=== PATIENT | male | born 1955 | race Caucasian/White ===

== ENCOUNTER → 2018-09-30 | Outpatient (CLI) | payer MEDICARE, OTHER ==
[~2018-09-30] MED LIST: CATHETER FLUSH 10 ML SYR IV PRN
[2018-09-30 10:14] LABS: BASOPHILS % (AUTO) 0 % (0-10); EOSINOPHILS # (AUTO) 0.1 10^3/uL (0.0-0.3); EOSINOPHILS % (AUTO) 1 % (0-10); HEMATOCRIT 43 % (40-54); LYMPHOCYTES # (AUTO) 0.9 X 10^3 (1.0-4.0); LYMPHOCYTES % (AUTO) 18 % (12-44); MEAN CORPUSCULAR HEMOGLOBIN 31 PG (25-34); MEAN CORPUSCULAR HGB CONC 35 G/DL (32-36); MEAN CORPUSCULAR VOLUME 89 FL (80-99); MONOCYTES # (AUTO) 0.8 X 10^3 (0.0-1.0); MONOCYTES % (AUTO) 17 % (0-12); NEUTROPHILS # (AUTO) 2.9 X 10^3 (1.8-7.8); NEUTROPHILS % (AUTO) 63 % (42-75); PLATELET COUNT 218 10^3/uL (130-400); RED BLOOD COUNT 4.88 10^6/uL (4.35-5.85); RED CELL DISTRIBUTION WIDTH 13.3 % (10.0-14.5); WHITE BLOOD COUNT 4.6 10^3/uL (4.3-11.0)
[2018-09-30 10:30] LABS: URIC ACID 7.1 MG/DL (2.6-7.2)
[2018-09-30 10:37] LABS: ERYTHROCYTE SEDIMENTATION RATE 13 MM/HR (0-30)
--- NOTE | 2018-09-30 13:30 | Diagnostic Imaging Report ---
INDICATION: Left knee pain. Patient has a left knee prosthesis. Patient also has history of prostate carcinoma. TECHNIQUE: Patient was administered 23.2 mCi technetium 99m MDP intravenously and dynamic flow, blood pool and delayed imaging over both knees was performed. In addition, whole imaging was performed after a three-hour delay. COMPARISON: No prior bone scan is available for comparison. FINDINGS: There is symmetric blood flow and blood pool activity within both knees. Photopenia over the left knee is seen consistent with patient's known left knee prosthesis. Delayed imaging over the knees demonstrate some uptake involving the medial compartment of the right knee, likely degenerative. No abnormal activity about the left knee or prosthesis is identified to suggest loosening or infection. Whole-body imaging demonstrates normal uptake of activity by the axial and appendicular skeleton. There is uptake by both kidneys with excretion into the urinary bladder. No abnormal foci of tracer accumulation is seen to suggest osseous metastatic disease. IMPRESSION: 1. No scintigraphic evidence of osseous metastatic disease. 2. No abnormality is seen about the left knee and prosthesis to suggest infection or loosening. There are some degenerative changes of the right knee. Dictated by: Dictated on workstation # [id number]
== END ==
LOC: CARD 09:28
PROVIDERS: ATTEND Nurse Practitioner Family
DX: M25.562 Pain in left knee (principal); M79.89 Other specified soft tissue disorders; Z96.652 Presence of left artificial knee joint; M17.11 Unilateral primary osteoarthritis, right knee; Z80.42 Family history of malignant neoplasm of prostate
CPT/HCPCS: 36415; 78306; 84550; 85025; 85652; 86038; 86141; 86200; 86430

== ENCOUNTER → 2021-02-18 | Outpatient (CLI) | payer MEDICARE, OTHER ==
--- NOTE | 2021-02-18 16:01 | Diagnostic Imaging Report ---
PROCEDURE: MRI left joint lower extremity without contrast. TECHNIQUE: Multiplanar, multisequence non contrast-enhanced MRI of the left ankle was accomplished. INDICATION: Ankle pain. COMPARISONS: None available. FINDINGS: TENDONS: Achilles is intact. Peroneus longus and brevis tendons are intact. The posterior tibialis, flexor digitorum longus and flexor hallucis longus are normal. Anterior tibialis, extensor hallucis longus, and extensor digitorum longus are normal. LIGAMENTS: Anterior and posterior distal tibiofibular ligaments are intact. The anterior talofibular, calcaneofibular, and posterior talofibular ligaments are intact. Medial deltoid ligamentous complex is normal. Spring ligament is intact. BONES AND CARTILAGE: No osteochondral lesion of the talar dome. No fracture or stress fracture. The articular cartilage of the tibiotalar and posterior subtalar joints are normal. No tarsal coalition. No abnormal osseous excrescence from the talus. There is a prominent Stieda process of the talus but has no surrounding edema. SOFT TISSUES: No evidence of plantar fasciitis. No abnormal soft tissue scar/fibrosis within the tarsal canal/sinus tarsi or tarsal tunnel. No ankle joint effusion. IMPRESSION: 1. No tarsal coalition. No osseous excrescence from the talus to suggest osteochondroma. 2. No tendon or ligament tear. Dictated by: Dictated on workstation # [id number]
== END ==
LOC: RAD 14:00
PROVIDERS: ATTEND Podiatrist Foot & Ankle Surgery
DX: M77.9 Enthesopathy, unspecified (principal); M89.8X7 Other specified disorders of bone, ankle and foot
CPT/HCPCS: 73721

== ENCOUNTER 2021-05-01 05:32 | Outpatient (RCR) | payer MEDICARE, OTHER ==
[~2021-05-01] VITALS: Ht 175.3 cm; Wt 113.5 kg
[~2021-05-01 05:32] MED LIST changes: +AMLO-251 PO; +ATOR40TA70 PO; +CALC-823 PO; +CALC625T29 PO; +CARV25TA PO; -CATHETER FLUSH 10 ML SYR IV PRN; +CHOL400C9 PO; +DULA1.5P2 SQ; +HYDR12.56 PO; +LISI20TA26 PO; +MELO15TA39 PO
== END 2021-05-01 10:35 | disposition home or self-care (01) ==
LOC: PREOP 05:32
PROVIDERS: ATTEND Podiatrist Foot & Ankle Surgery
DX: Z01.812 Encounter for preprocedural laboratory examination (principal); M89.8X7 Other specified disorders of bone, ankle and foot; Z20.822 Contact with and (suspected) exposure to COVID-19
CPT/HCPCS: 87635

== ENCOUNTER 2021-05-05 05:54 | Day surgery (SDC) | payer MEDICARE, OTHER ==
[2021-05-05] VITALS (10 sets, daily range): BP systolic 120–153; BP diastolic 65–72
[~2021-05-05] VITALS: Ht 175.3 cm; Wt 113.5 kg
[2021-05-05] MEDS ORDERED: ONDANSETRON 4 MG/2 ML (SDV) Z0FRAN ONE (06:47)
[2021-05-05] MEDS ORDERED: SEVOFLURANE (ULTANE) 15 ML INHAL SOLN ONE (06:47)
[2021-05-05] MEDS ORDERED: SUCCINYLCHOLINE INJ 100 MG/5 ML SYR/VIAL ONE (06:47)
[2021-05-05] MEDS ORDERED: proPOfol 200 MG/20 ML (DIPRIVAN) VIAL IV ONE (06:47)
[2021-05-05] MEDS ORDERED: ROCURONIUM 10 MG/ML 5 ML SYRINGE IV ONE (06:47)
[2021-05-05] MEDS ORDERED: fentaNYL INJ 100 MCG/2 ML AMP ONE (06:47)
[2021-05-05] MEDS ORDERED: MIDAZOLAM 2 MG/2 ML (VERSED) VIAL ONE (06:48)
[2021-05-05] MEDS ORDERED: ceFAZolin INJECTION 1,000 MG in WATER (STERILE) FOR INJECTION 10 ML IV ONE (07:00)
[2021-05-05] MEDS ORDERED: LACTATED RINGERS 1,000 ML IV PRN (07:00)
[2021-05-05] MEDS ORDERED: FAMOTIDINE 20MG/2ML IV (PEPCID) ONE (07:09)
[2021-05-05] MEDS ORDERED: BUPIVACAINE 0.5% 30 ML (SENSORCAINE) VIAL ONE (07:13)
[2021-05-05] MEDS ORDERED: LIDOCAINE 1% INJ 20 ML 20 ML VIAL ONE (07:13)
--- NOTE | 2021-05-05 07:52 | Progress Note-Pre Operative ---
Pre-Operative Progress Note H&P Reviewed The H&P was reviewed, patient examined and no changes noted. Date Seen by Provider: May 05, 2021 Time Seen by Provider: 07:52 Date H&P Reviewed: May 05, 2021 Time H&P Reviewed: 07:52 Pre-Operative Diagnosis: Bone spur (exostosis) left talus JUDITH LANDIS DPM May 05, 2021 07:52
[2021-05-05] MEDS ORDERED: PHENYLEPHRINE 100 MCG/ML 10 ML (ANESTHESIA) SYR ONE (08:06)
[2021-05-05] MEDS ORDERED: GLYCOPYRROLATE 0.2 MG/ML (ROBINUL) 2 ML VIAL ONE (08:35)
[2021-05-05] MEDS ORDERED: NEOSTIGMINE 3 MG/3 ML VIAL ONE (08:35)
--- NOTE | 2021-05-05 09:05 | Progress Note-Post Operative ---
Post-Operative Progess Note Surgeon (s)/Guide Dog Trainer (s) Surgeon JUDITH LANDIS DPM Guide Dog Trainer: none Pre-Operative Diagnosis Bone spur (exostosis) left talus Post-Operative Diagnosis same Procedure & Operative Findings Date of Procedure 05/05/21 Procedure Performed/Findings Exostectomy, left talus Anesthesia Type General Estimated Blood Loss Estimated blood loss (mL): Minimal Specimens/Packing Specimens Removed Bone spur left talus Packing: none JUDITH LANDIS DPM May 05, 2021 09:05
[2021-05-05] MEDS ORDERED: ACHD5005 PO (09:08)
--- NOTE | 2021-05-05 09:14 | Diagnostic Imaging Report ---
INDICATION: Left foot pain IMPRESSION: 1.2 seconds of fluoroscopy and single lateral digital image surgery is used by Dr. Michelle during bone spur excision from left foot. Dictated by: Dictated on workstation # [id number]
[2021-05-05] MEDS ORDERED: HYDROmorphone 2 MG/ML VIAL (DILAUDID) IV ONE (09:15)
[2021-05-05] MEDS ORDERED: HYDROcodone/APAP 5 MG/325 MG (LORTAB) TAB PO PRN (09:15)
[2021-05-05] MEDS ORDERED: LACTATED RINGERS 1,000 ML IV SCH (09:15)
[2021-05-05] MEDS ORDERED: ONDANSETRON 4 MG/2 ML (SDV) Z0FRAN IVP PRN (09:15)
--- NOTE | 2021-05-05 09:48 | Diagnostic Imaging Report ---
INDICATION: Left foot pain AP and lateral views of left foot show no fracture, dislocation or other acute abnormalities. IMPRESSION: Unremarkable left foot. Dictated by: Dictated on workstation # [id number]
--- NOTE | 2021-05-05 10:39 | Anesthesia-General Post-Op ---
General Patient Condition Mental Status/LOC: Same as Preop Cardiovascular: Satisfactory Nausea/Vomiting: Absent Respiratory: Satisfactory Pain: Controlled Complications: Absent Post Op Complications Complications None Follow Up Care/Instructions Patient Instructions None needed. Anesthesia/Patient Condition Patient Condition Patient is doing well, no complaints, stable vital signs, no apparent adverse anesthesia problems. No complications reported per nursing. D/C home per [facility] [place] Criteria: Yes AURELIO JACQUES CRNA May 05, 2021 10:39
--- NOTE | 2021-05-05 11:38 | Physical Therapy Ortho Eval ---
PT Orthopedic Evaluation Type of Surgery Bone spur (exostosis) left talus Prior Level of Function Current Living Status: Spouse Locomotion (Upon Admit): Independent Established Durable Medical Eq: Front Wheeled Walker Subjective Subjective Patient agrees to PT. Entry Into Home: Stairs With Railing Steps Into Home: 5 Objective Objective NWB left foot with physician stating patient can place foot flat for balance Motor Control Motor Control: Motor Control WNL ROM ROM: WFL, except focal deficit Strength Strength: WFL Transfer SCALE: Activities may be completed with or without assistive devices. 0-Rslyqxnlla-jeukaaf completes the activity by him/herself with no assistance from a helper. 5-Set-up or Clean-up Assistance-helper sets up or cleans up; patient completes activity. Solon assists only prior to or following the activity. 4-Supervision or Touching Assistance-helper provides verbal cues and/or santiago emily/steadying and/or contact guard assistance as patient completes activity. Assistance may be provided throughout the activity or intermittently. 3-Partial/Moderate Assistance-helper does LESS THAN HALF the effort. Solon lifts, holds or supports trunk or limbs, but provides less than half the effort. 2-Substantial/Maximal Assistance-helper does MORE THAN HALF the effort. Solon lifts or holds trunk or limbs and provides more than half the effort. 8-Gvksmaiqn-nohtut does ALL the effort. Patient does none of the effort to complete the activity. Or, the assistance of 2 or more helpers is required for the patient to complete the activity. If activity was not attempted, code reason: 7-Patient Refused. 9-Not Applicable-not attempted and the patient did not perform the activity before the current illness, exacerbation or injury. 10-Not Attempted due to Environmental Limitations-(lack of equipment, weather restraints, etc.). 88-Not Attempted due to Medical Conditions or Safety Concerns. Transfers (B, C, W/C) (QC): 4 (CGA slightly unstable and patient is impulsive) Gait Gait Assistive Device: Crutches Right Lower Extremity: Right Weight Bearing Status RLE: Full Weight Bearing Left Lower Extremity: Left Weight Bearing Status LLE: Non Weight Bearing patient can flat foot left per physician for stability/balance Gait (QC): 3 Distance (QC): 3=150 ft Distance: 150' Gait Level of Assist: 3 Treatment Rendered Treatment: Gait Train, Step Train (patient very unstable and instructed to place left foot flat for balance per PT and physician to prevent falls) Assessment/Goals Goal Time Frame: 1 Visit Safe Ambulation: No (unsteady with crutches/instructed to utilize FWW in home for safety) Plan Treatment Plan: Discharge, Education, Gait PT/Family Agrees to Plan: Yes Time Time In: 1015 Time Out: 1040 Total Billed Treatment Time: 25 Billed Treatment Time 1 visit EVModC 10 min FA 15 min VANITA PHILLIPS PT May 05, 2021 11:38
--- NOTE | 2021-05-05 15:39 | OPERATIVE REPORT ---
DATE OF SERVICE: 05/05/2021 SURGEON: Cammy Landis DPM. PREOPERATIVE DIAGNOSIS: Exostosis, left talus. POSTOPERATIVE DIAGNOSIS: Exostosis, left talus. PROCEDURE: Exostectomy, left talus. WOUND CLASS: Clean. ANESTHESIA: General. HEMOSTASIS: Pneumatic thigh tourniquet at 300 mmHg. INDICATIONS: This 66-year-old male presents complaining of a painful left foot. Conservative therapy is met with unsatisfactory results and the patient is agreeable to surgical intervention after risks and complications were discussed at length. No guarantees were extended to the patient and he is willing to proceed. DESCRIPTION OF PROCEDURE: The patient was brought back to the operating table, placed in secure supine position. Appropriate timeout was performed. Preprocedure anesthesia was provided with a 1:1 mixture of 1% Xylocaine, 0.5% Marcaine injected in a local infusion to the dorsal lateral aspect of the left talus. 7 mL were utilized in toto. Preoperative markings of the landmarks, extensor tendons was also visualized. General anesthetic was induced. The left foot was then prepped and draped in normal sterile manner. The left foot was then elevated, allowed to exsanguinate after which the tourniquet was inflated to 300 mmHg. Attention was then directed to the lateral aspect of the extensor digitorum longus tendon where a 2 cm vertical incision was created. Blunt dissection was carried out through the subcutaneous tissue with great care to identify and retract all vital neurovascular structures. The incision was deepened down to the extensor retinaculum, which was partially incised. The incision was then deepened down to bone to the talar neck. Tenting the soft tissue allowed for direct visualization of the dorsal prominence of bone to the talar neck. Utilizing a rongeur, the majority of this bony prominence was reduced and a specimen was sent for gross and microscopic evaluation. Next, utilizing a power rasp the rest of the talar neck was then smoothed. No other pathology was identified visually. Intraoperative x-ray was utilized then to confirm a complete reduction of the exostosis. No other pathology was visualized at this time. The wound was flushed with copious amounts of normal saline. Closure was then performed in layers. Deep closure was performed with 3-0 Vicryl, especially noted to the extensor retinaculum. Subcutaneous tissue was approximated with 4-0 Vicryl and skin closure with 4-0 Prolene in a horizontal mattress type stitch. Postoperative injection consisted of 8 mL of 0.5% Marcaine injected in local infusion to the surgical site as well as 10 mg of dexamethasone. Postoperative dressing consisted of Betadine soaked Adaptic, sterile 4 x 4, sterile Kerlix all secured with a Coban wrap. The patient tolerated the anesthesia and procedure well, was transported from the operating room to the recovery room with vital signs stable and vascular status intact to all digits of the left foot. He is to follow up in my office in 10 days' period of time or sooner if necessary. He is to be nonweightbearing on the left lower extremity. Postoperative instructions were discussed with the patient and spouse as well as written instructions given. He was also given a prescription for hydrocodone. Job ID: [id number] DocumentID: [id number] Dictated Date: 05/05/2021 09:13:16 Assembly Mechanic Date: 05/05/2021 15:38:55 Dictated By: CAMMY LANDIS DPM
== END 2021-05-05 10:50 | disposition home or self-care (01) ==
LOC: SDC 05:54
PROVIDERS: ATTEND Podiatrist Foot & Ankle Surgery
DX: M89.9 Disorder of bone, unspecified (principal); M77.52 Other enthesopathy of left foot and ankle; M25.775 Osteophyte, left foot; I10 Essential (primary) hypertension; K21.9 Gastro-esophageal reflux disease without esophagitis; E78.00 Pure hypercholesterolemia, unspecified; E66.9 Obesity, unspecified; M19.90 Unspecified osteoarthritis, unspecified site; Z96.652 Presence of left artificial knee joint; Z98.890 Other specified postprocedural states; Z79.899 Other long term (current) drug therapy; Z87.891 Personal history of nicotine dependence; Z91.02 Food additives allergy status; Z68.36 Body mass index [BMI] 36.0-36.9, adult
CPT/HCPCS: 73620; 76000; 87081; 88305; 88311